=== PATIENT | male | born 1960 | race Two or more races ===

== ENCOUNTER 2017-07-27 07:52 | Day surgery (SDC) | payer OTHER ==
[~2017-07-27] VITALS: Ht 177.8 cm; Wt 107.0 kg
[~2017-07-27 07:52] MED LIST: FLUO10 PO; HYDCHL12.5 PO; METO100ER PO
== END 2017-07-27 09:45 | disposition home or self-care (01) ==
LOC: ORSCMMR 07:52
PROVIDERS: Internal Medicine Gastroenterology
PROC: 0DBL8ZX Excision of Transverse Colon, Via Natural or Artificial Opening Endoscopic, Diagnostic (ICD-10-PCS; principal; 2017-07-27 09:00)
DX: K62.5 Hemorrhage of anus and rectum (principal); D12.3 Benign neoplasm of transverse colon; K57.30 Diverticulosis of large intestine without perforation or abscess without bleeding; K64.8 Other hemorrhoids; I10 Essential (primary) hypertension; F32.9 Major depressive disorder, single episode, unspecified; E78.00 Pure hypercholesterolemia, unspecified; Z79.899 Other long term (current) drug therapy
CPT/HCPCS: 88305; J7120

== ENCOUNTER 2017-07-31 19:49 | Emergency (ER) | payer OTHER ==
[~2017-07-31] VITALS: Ht 177.8 cm; Wt 101.6 kg
[2017-07-31] MEDS ORDERED: METO25ER (20:16)
== END 2017-07-31 21:22 | disposition home or self-care (01) ==
LOC: ER 19:49
DX: S61.411A Laceration without foreign body of right hand, initial encounter (principal); Z79.899 Other long term (current) drug therapy; W25.XXXA Contact with sharp glass, initial encounter
CPT/HCPCS: 12001; 99283

== ENCOUNTER 2020-07-26 17:38 | Emergency (ER) | payer OTHER ==
[~2020-07-26] VITALS: Ht 177.8 cm; Wt 108.9 kg
[~2020-07-26 17:38] MED LIST changes: +METO25ER
[2020-07-26] MEDS ORDERED: METO100ER PO (18:06)
[2020-07-26] MEDS ORDERED: AMOCLA875 PO (20:23)
[2020-07-26] MEDS ORDERED: Norco 10-325 T1 EACH PO (20:23)
[2020-07-26] MEDS ORDERED: ONDA4ODT MM (20:23)
== END 2020-07-26 20:45 | disposition home or self-care (01) ==
LOC: ER 17:38
DX: S68.611A Complete traumatic transphalangeal amputation of left index finger, initial encounter (principal); S68.613A Complete traumatic transphalangeal amputation of left middle finger, initial encounter; Z23 Encounter for immunization; Z79.899 Other long term (current) drug therapy; W31.2XXA Contact with powered woodworking and forming machines, initial encounter
CPT/HCPCS: 26951; 36415; 73130; 90471; 90714; 96361-59; 96365-59; 96375-59; 96376-59; 99283-25; A9270; J0690; J2405; J3010; J7030